=== PATIENT | male | born 1965 | race Caucasian/White ===

== ENCOUNTER → 2017-09-25 | Day surgery (SDC) | payer BC ==
[~2017-09-25] MED LIST: LIDOCAINE 2% 100 MG/5 ML SYRINGE.; PROPOFOL 40 ML IV
== END | disposition home or self-care (01) ==
LOC: ENDOS 06:53
DX: Z12.11 Encounter for screening for malignant neoplasm of colon (principal); I10 Essential (primary) hypertension; Z86.14 Personal history of Methicillin resistant Staphylococcus aureus infection
CPT/HCPCS: 45378; J2704

== ENCOUNTER 2017-10-09 06:36 | Day surgery (SDC) | payer BC ==
[2017-10-09] MEDS ORDERED: fentaNYL PF VIAL 100 MCG/2 ML VIAL IV ×2 (07:00)
[2017-10-09] MEDS ORDERED: ONDANSETRON PF 4 MG/2 ML VIAL. IV ×2 (07:00)
[2017-10-09] MEDS ORDERED: ceFAZolin 2GM PREMIX 2 GM/50 ML BAG IV ×2 (07:00)
[2017-10-09] MEDS ORDERED: LIDOCAINE 1% PF 2 ML VIAL. ID ×2 (07:00)
[2017-10-09] MEDS ORDERED: MORPHINE SULFATE 2 MG/ML DISP.SYRIN. IV ×2 (07:00)
[2017-10-09] MEDS: IV RINGERS,LACTATED 1000ML 1,000 ML IV ×2 (07:00)
[2017-10-09] MEDS ORDERED: HYDROmorphone 2 MG/ML VIAL IV ×2 (07:00)
[2017-10-09] MEDS ORDERED: PROCHLORPERAZINE 10 MG/2 ML VIAL. IV ×2 (07:00)
[2017-10-09] MEDS ORDERED: LIDOCAINE 2% PF Vial for OR 5 ML VIAL. ×2 (07:18)
[2017-10-09] MEDS ORDERED: ONDANSETRON PF 4 MG/2 ML VIAL. ×2 (07:18)
[2017-10-09] MEDS ORDERED: fentaNYL PF VIAL 100 MCG/2 ML VIAL ×4 (07:18→09:05)
[2017-10-09] MEDS ORDERED: ROCURONIUM 50 MG/5 ML VIAL. ×4 (07:18→08:32)
[2017-10-09] MEDS ORDERED: PROPOFOL 20 ML IV ×2 (07:18)
[2017-10-09] MEDS ORDERED: DEXAMETHASONE SOD PHOS 20 MG/5 ML VIAL. ×2 (07:18)
[2017-10-09] MEDS ORDERED: MIDAZOLAM HCL/PF 2 MG/2 ML VIAL. ×2 (07:18)
[2017-10-09] MEDS: BUPIVACAINE-EPI 0.25%-1:200000 50 ML VIAL. ×2 (08:16)
[2017-10-09] MEDS ORDERED: GLYCOPYRROLATE 1 MG/5 ML VIAL. ×2 (08:24)
[2017-10-09] MEDS ORDERED: PHENYLEPHRINE in 0.9% NACL PF 1 MG/10 ML SYRINGE. IV (08:24)
[2017-10-09] MEDS ORDERED: NEOSTIGMINE METHYLSULFATE 5 MG/5 ML SYRINGE. ×2 (08:24)
[2017-10-09] MEDS ORDERED: KETOROLAC 30 MG/ML INJ FOR OR. INJ ×2 (08:29)
[2017-10-09] MEDS ORDERED: SEVOFLURANE 61 TO 120 MINUTES. IH ×2 (09:10)
[2017-10-09] MEDS: fentaNYL PF VIAL 100 MCG/2 ML VIAL IV ×8 (09:37→10:14)
[2017-10-09] MEDS: oxyCODONE/APAP 5/325 1 TAB TABLET PO ×2 (09:45)
== END 2017-10-09 10:54 | disposition home or self-care (01) ==
LOC: SURG 06:36
DX: K43.6 Other and unspecified ventral hernia with obstruction, without gangrene (principal); I10 Essential (primary) hypertension; Z72.89 Other problems related to lifestyle; Z87.891 Personal history of nicotine dependence
CPT/HCPCS: 49653; C1781; J0690; J1100; J1885; J2250; J2370; J2405; J2704; J2710; J3010; J3490; J7120